=== PATIENT | male | born 1990 | race Caucasian/White ===

== ENCOUNTER 2020-04-22 11:36 | Emergency (ER) | payer MEDICAID ==
[~2020-04-22] VITALS: Ht 175.3 cm; Wt 72.6 kg
[2020-04-22 11:46] VITALS: BP 108/73
[2020-04-22] MEDS ORDERED: BACITRACIN OINT 500 UNITS/GM PKT TP ONE (12:40)
[2020-04-22 13:09] VITALS: BP 108/73
== END 2020-04-22 13:09 | disposition home or self-care (01) ==
LOC: MED 11:36
DX: S61.213A Laceration without foreign body of left middle finger without damage to nail, initial encounter (principal); S61.215A Laceration without foreign body of left ring finger without damage to nail, initial encounter; W26.8XXA Contact with other sharp object(s), not elsewhere classified, initial encounter; Y93.89 Activity, other specified; Y92.89 Other specified places as the place of occurrence of the external cause; Y99.8 Other external cause status
CPT/HCPCS: 99282

== ENCOUNTER 2020-10-26 14:24 | Emergency (ER) | payer MEDICAID ==
[~2020-10-26] VITALS: Ht 175.3 cm; Wt 70.3 kg
[2020-10-26 14:35] VITALS: BP 95/70
--- NOTE | 2020-10-26 15:05 | NUR ---
30YO M C/O PIMPLE-LIKE LESIONS WITH WHITISH DISCHARGE ON R BUTTOCK AREA AND GROIN AREA X 2 DAYS. ACCOMPANIED BY BURNING SENSATION WHEN URINATING. ADMITS TO HAVING MULTIPLE SEXUAL PARTNERS. DENIES FEVER. UPON ASSESSMENT, VSS. CLEAR BREATH SOUNDS. WITH ~1-2CM LESIONS ON R BUTTOCK, R THIGH, LEFT THIGH AND SHAFT OF PENIS DRAINING WHITE DISCHARGE. PT SITTING ON BED WITH 1 SIDERAIL UP. ERMD MADE AWARE OF PT STATUS. PMH: NONE NKA
[2020-10-26] MEDS ORDERED: AZITHROMYCIN 250 MG TAB PO ONE (15:40)
[2020-10-26] MEDS ORDERED: cefTRIAXone 250 MG in LIDOCAINE MPF 1% 0.9 ML IM ONE (15:40)
[2020-10-26] MEDS ORDERED: cefTRIAXone 250 MG VIAL ONE (15:43)
[2020-10-26] MEDS ORDERED: LIDOCAINE MPF 1% 5 ML ONE (15:44)
[2020-10-26 16:35] VITALS: BP 95/70
--- NOTE | 2020-10-26 16:36 | NUR ---
Patient discharged with v/s stable. Written and verbal after care instructions given and explained. Patient alert, oriented and verbalized understanding of instructions. Ambulatory with steady gait. All questions addressed prior to discharge. ID band removed. Patient advised to follow up with PMD. Rx of KEFLEX, BACITRACIN given. Patient educated on indication of medication including possible reaction and side effects. Opportunity to ask questions provided and answered.
== END 2020-10-26 16:36 | disposition home or self-care (01) ==
LOC: MED 14:24
DX: L73.9 Follicular disorder, unspecified (principal); F17.210 Nicotine dependence, cigarettes, uncomplicated
CPT/HCPCS: 36415; 81002; 86592; 86703; 87491; 96372; 99283; J0696; J2001

== ENCOUNTER 2020-12-11 03:38 | Emergency (ER) | payer MEDICAID ==
[~2020-12-11] VITALS: Ht 175.3 cm; Wt 72.8 kg
[2020-12-11 03:43] VITALS: BP 123/57
--- NOTE | 2020-12-11 03:50 | NUR ---
PT AMBULATED WITH STEADY GAIT TO BED 12. PROVIDED UA SAMPLE AT THIS TIME.
--- NOTE | 2020-12-11 03:52 | NUR ---
30 Y/O MALE BIB SELF WITH C/O HEMATURIA SINCE 2299. PT VERABLIZES HAVING DISCOMFORT AND BURNING ON URINATION 02/07. HE DENIES HAVING ANY ABNORMAL DISCHARGE. BUT VERBALIZES BLOOD ON URINATION. HE STATES HE TESTED HERE X 1 WEEK AGO FOR STD'S AND WAS NOTIFIED OF (+) RESULTS: GONORRHEA AND CHLAMYDIA. MEDHX: DENIES NKA
--- NOTE | 2020-12-11 04:05 | NUR ---
ANNA SAWYER AT BEDSIDE EVALAUTING PATIENT.
[2020-12-11] MEDS ORDERED: AZITHROMYCIN 250 MG TAB PO ONE (04:10)
[2020-12-11] MEDS ORDERED: cefTRIAXone 1,000 MG in LIDOCAINE MPF 1% 2.1 ML IM ONE (04:10)
[2020-12-11] MEDS ORDERED: cefTRIAXone 1,000 MG VIAL ONE (04:23)
[2020-12-11] MEDS ORDERED: LIDOCAINE MPF 1% 5 ML ONE (04:24)
[2020-12-11] MEDS ORDERED: DOXY100C9 PO (04:30)
--- NOTE | 2020-12-11 04:37 | NUR ---
NOTIFIED DR. PAUL THAT PT DOES NOT WISH TO HAVE CHLAMYDIA LAB DRAW AT THIS TIME. STATED, "OKAY" AND GAVE NO NEW ORDERS.
[2020-12-11 04:43] VITALS: BP 123/57
--- NOTE | 2020-12-11 04:43 | NUR ---
Patient discharged with v/s stable. Written and verbal after care instructions given and explained BY ER MD MATHIS. Patient alert, oriented and verbalized understanding of instructions. Ambulatory with steady gait. All questions addressed prior to discharge. ID band removed. Patient advised to follow up with PMD. Rx of DOXYCYCLINE given. Patient educated on indication of medication including possible reaction and side effects. Opportunity to ask questions provided and answered.
== END 2020-12-11 04:43 | disposition home or self-care (01) ==
LOC: MED 03:38
DX: R31.9 Hematuria, unspecified (principal); R30.0 Dysuria; R30.9 Painful micturition, unspecified; F17.210 Nicotine dependence, cigarettes, uncomplicated; F11.90 Opioid use, unspecified, uncomplicated; Z20.2 Contact with and (suspected) exposure to infections with a predominantly sexual mode of transmission
CPT/HCPCS: 81002; 96372; 99283; J0696; J2001

== ENCOUNTER 2021-03-31 11:28 | Emergency (ER) | payer MEDICAID ==
[~2021-03-31] VITALS: Ht 172.7 cm; Wt 70.8 kg
[~2021-03-31 11:28] MED LIST: DOXY100C9 PO
[2021-03-31 11:32] VITALS: BP 121/74
[2021-03-31] MEDS ORDERED: CEPH-588 PO (12:14)
[2021-03-31] MEDS ORDERED: DIPH25TA53 PO (12:14)
[2021-03-31 12:25] VITALS: BP 114/71
== END 2021-03-31 12:25 | disposition home or self-care (01) ==
LOC: MED 11:28
DX: S80.821A Blister (nonthermal), right lower leg, initial encounter (principal); F17.210 Nicotine dependence, cigarettes, uncomplicated; Z79.899 Other long term (current) drug therapy; X58.XXXA Exposure to other specified factors, initial encounter; Y93.89 Activity, other specified; Y92.89 Other specified places as the place of occurrence of the external cause; Y99.8 Other external cause status
CPT/HCPCS: 99283

== ENCOUNTER 2022-04-29 14:28 | Emergency (ER) | payer MEDICAID ==
[~2022-04-29] VITALS: Ht 175.3 cm; Wt 66.7 kg
[~2022-04-29 14:28] MED LIST changes: +CEPH-588 PO; +DIPH25TA53 PO; -DOXY100C9 PO; +VIB100 PO
[2022-04-29 14:33] VITALS: BP 114/78
[2022-04-29] MEDS ORDERED: cefTRIAXone 500 MG in LIDOCAINE MPF 1% 1 ML IM ONE (14:40)
--- NOTE | 2022-04-29 14:40 | NUR ---
31/M PRESENTS TO ED WITH C/O RIGHT SIDED TESTICULAR PAIN SINCE YESTERDAY, DENIES INJURY/TRAUMA, DENIES DISCHARGE, REPORTS DYSURIA. CONCERNCED FOR POSSIBLE STDS, STATES "I'M JUST SCARED BECAUSE I'VE BEEN WITH A LOT OF GIRLS." PATIENT DENIES RECENT FEVERS OR CHILLS.
[2022-04-29] MEDS ORDERED: KETOROLAC 30 MG/ML VIAL IM ONE (15:00)
[2022-04-29] MEDS ORDERED: LIDOCAINE MPF 1% 0 ML ONE (15:25)
[2022-04-29] MEDS ORDERED: cefTRIAXone 500 MG VIAL ONE (15:25)
--- NOTE | 2022-04-29 15:34 | NUR ---
Pt refused IM medications, EDDIE Lombardi made aware.
[2022-04-29] MEDS ORDERED: IBUPROFEN 600 MG TAB PO ONE (15:35)
[2022-04-29] MEDS ORDERED: IBUP-2213 PO (16:20)
[2022-04-29] MEDS ORDERED: DOXY-565 PO (16:20)
[2022-04-29] MEDS ORDERED: CEFI400C PO (16:20)
[2022-04-29 16:25] VITALS: BP 114/78
--- NOTE | 2022-04-29 16:25 | NUR ---
Patient discharged with v/s stable. Written and verbal after care instructions given and explained. Patient alert, oriented and verbalized understanding of instructions. Ambulatory with steady gait. All questions addressed prior to discharge. ID band removed. Patient advised to follow up with PMD. Rx of Doxycycline, Ibuprofen, Cefixime given. Patient educated on indication of medication including possible reaction and side effects. Opportunity to ask questions provided and answered. Patient left without discharge instructions.
== END 2022-04-29 16:25 | disposition home or self-care (01) ==
LOC: MED 14:28
DX: N43.3 Hydrocele, unspecified (principal); F17.210 Nicotine dependence, cigarettes, uncomplicated; Z72.89 Other problems related to lifestyle
CPT/HCPCS: 76870; 81002; 87491; 99284; J0696; J1885; J2001